=== PATIENT | female | born 1980 | race Caucasian/White ===

== ENCOUNTER 2018-03-29 00:35 | Emergency (ER) | payer SELFPAY ==
[2018-03-29 00:55] VITALS: BMI 32.8
[2018-03-29 01:10] LABS: BASO % 0.9 % (0-2.0); EOS % 0.9 % (0-4.5); HEMATOCRIT 32.1 % (32.4-45.2); HEMOGLOBIN 10.2 GM/dL (10.7-15.3); LYMPH % 36.7 % (8-40); MCH 24.2 pg (25.7-33.7); MCHC 31.6 g/dl (32.0-36.0); MEAN CELL VOLUME 76.4 fl (80-96); MEAN PLT VOLUME 7.3 fl (7.5-11.1); MONO % 6.8 % (3.8-10.2); NEUT % 54.7 % (42.8-82.8); PLATELET COUNT 396 K/MM3 (134-434); RDW 20.6 % (11.6-15.6); WHITE BLOOD COUNT 8.1 K/mm3 (4.0-10.0)
[2018-03-29] MEDS ORDERED: ASPIRIN 81 MG CHEWABLE TABLETS PO ONE (01:23)
[2018-03-29] MEDS ORDERED: FAMOTIDINE 20 MG/50 ML IVPB 20 MG in PREMIX 50 IVPB ONE (01:23)
[2018-03-29] MEDS ORDERED: MAG HYDROX/AL HYDROX/SIMETH -MYLANTA- ORAL SUSPENSION PO ONE (01:23)
[2018-03-29 01:24] LABS: URINE APPEARANCE CLEAR; URINE BILIRUBIN NEGATIVE (<2.0 mg/dL); URINE COLOR LTYELLOW; URINE GLUCOSE (UA) NEGATIVE (NEGATIVE); URINE KETONE NEGATIVE (NEGATIVE); URINE LEUK ESTERASE TRACE (NEGATIVE); URINE NITRITE NEGATIVE (NEGATIVE); URINE UROBILINOGEN NEGATIVE mg/dL (0.2-1.0)
[2018-03-29 01:25] LABS: HCG,QUALITATIVE URINE Negative
--- NOTE | 2018-03-29 01:25 | PDOC ---
History of Present Illness - General Chief Complaint: Chest Pain Stated Complaint: CHEST DISCOMFORT Time Seen by Provider: 03/29/18 00:49 History Source: Patient Exam Limitations: No Limitations - History of Present Illness Initial Comments: 03/29/18 01:24 37y F hx of thyroid ca s/ resection, presents with complaint of burning subsernal cp radiating to both shoulders. pt noted a brief episode this morning lasting approx 1 min before resolving, and then started again around 9-10pm tonight. Pt denies any prior similar episodes of the pain. pt denies any n/v, GORMAN, diaphoresis, abd pain, diarhrea, melena, bpr, dysuria, back pain. no change in pain with eating (she last had walnuts and pistatios around 8pm). denies smoking, etoh use family: mother with hx of pulmonary hypertension Past History - Past Medical History Allergies/Adverse Reactions: Allergies Allergy/AdvReac Type Severity Reaction Status Date / Time No Known Allergies Allergy Verified 03/29/18 00:52 Home Medications: Ambulatory Orders NK [No Known Home Medication] 03/29/18 - Suicide/Smoking/Psychosocial Hx Smoking History: Never smoked Have you smoked in the past 12 months: No Information on smoking cessation initiated: No Hx Alcohol Use: No Drug/Substance Use Hx: No Review of Systems - Review of Systems Able to Perform ROS?: Yes Comments:: 03/29/18 01:29 Twelve-lead EKG was performed and reviewed by me. There is normal sinus rhythm with a normal rate. rate of 73 The axis is normal. The intervals are normal. There is normal R wave progression There are no ST or T wave abnormalities. *Physical Exam - Vital Signs Last Vital Signs Temp Pulse Resp BP Pulse Ox 97.6 F 76 20 135/69 100 03/29/18 00:53 03/29/18 00:53 03/29/18 00:53 03/29/18 00:53 03/29/18 00:53 - Physical Exam Comments: 03/29/18 01:30 GENERAL: The patient is awake, alert, and fully oriented, Nontoxic - in no acute distress. HEAD: Normocephalic, atraumatic. EYES: extraocular movements intact, sclera anicteric, conjunctiva clear. ENT: Normal voice, Moist mucous membranes. NECK: Normal range of motion, supple LUNGS: Breath sounds equal, clear to auscultation bilaterally. No wheezes, no rhonchi, no rales. HEART: Regular rate and rhythm, normal S1 and S2 without murmur, rub or gallop. ABDOMEN: Soft, nontender, normoactive bowel sounds. No guarding, no rebound. . No CVA tenderness EXTREMITIES: Normal range of motion, no edema. NEUROLOGICAL: No facial assymetry, Normal speech, PSYCH: Normal mood, normal affect. SKIN: Warm, Dry, normal turgor, Heart Score/ECG Review - ECG Impressions Comment:: 03/29/18 04:23 Twelve-lead EKG was performed and reviewed by me. There is normal sinus rhythm with a normal rate. Rate of 73 The axis is normal. The intervals are normal. There is normal R wave progression There are no ST or T wave abnormalities. ED Treatment Course - LABORATORY CBC & Chemistry Diagram: 03/29/18 00:53 03/29/18 00:53 - ADDITIONAL ORDERS Additional order review: Laboratory Results 03/29/18 03/29/18 03/29/18 04:18 00:53 00:53 Sodium 141 Potassium 3.9 Chloride 104 Carbon Dioxide 32 Anion Gap 5 L BUN 14 Creatinine 0.6 Creat Clearance w eGFR > 60 Random Glucose 96 Calcium 8.5 Total Bilirubin 0.2 AST 19 ALT 14 Alkaline Phosphatase 59 Creatine Kinase 76 85 Troponin I < 0.02 < 0.02 Total Protein 7.4 Albumin 3.4 Lipase 235 Urine Color Urine Appearance Urine pH Ur Specific [place] Urine Protein Urine Glucose (UA) Urine Ketones Urine Blood Urine Nitrite Urine Bilirubin Urine Urobilinogen Ur Leukocyte Esterase Urine WBC (Auto) Urine RBC (Auto) Ur Epithelial Cells Urine Mucus Urine HCG, Qual 03/29/18 00:53 Sodium Potassium Chloride Carbon Dioxide Anion Gap BUN Creatinine Creat Clearance w eGFR Random Glucose Calcium Total Bilirubin AST ALT Alkaline Phosphatase Creatine Kinase Troponin I Total Protein Albumin Lipase Urine Color Ltyellow Urine Appearance Clear Urine pH 7.0 Ur Specific [place] 1.019 Urine Protein 1+ H Urine Glucose (UA) Negative Urine Ketones Negative Urine Blood Negative Urine Nitrite Negative Urine Bilirubin Negative Urine Urobilinogen Negative Ur Leukocyte Esterase Trace Urine WBC (Auto) 8 Urine RBC (Auto) 1 Ur Epithelial Cells Rare Urine Mucus Rare Urine HCG, Qual Negative 03/29/18 00:53 RBC 4.20 MCV 76.4 L MCHC 31.6 L RDW 20.6 H MPV 7.3 L Neutrophils % 54.7 Lymphocytes % 36.7 Monocytes % 6.8 Eosinophils % 0.9 Basophils % 0.9 - RADIOLOGY Radiology Studies Ordered: Category Date Time Status CHEST X-RAY PORTABLE* [RAD] Stat Radiology 03/29/18 01:30 Taken - Medications Given in the ED: ED Medications Discontinued Medications Generic Name Dose Route Start Last Admin Trade Name Freq PRN Reason Stop Dose Admin Al Hydroxide/Mg Hydroxide 30 ml 03/29/18 01:23 03/29/18 02:17 Mylanta Suspension - PO 03/29/18 01:24 30 ml ONCE ONE Administration Aspirin 81 mg 03/29/18 01:23 03/29/18 02:17 Asa - PO 03/29/18 01:24 81 mg ONCE ONE Administration Famotidine/Sodium Chloride 20 50 mls @ 100 mls/hr 03/29/18 01:23 03/29/18 02: 17 mg/ Miscellaneous IVPB 03/29/18 01:52 100 mls/hr ONCE ONE Administration Medical Decision Making - Medical Decision Making 03/29/18 01:30 Differential for the patient's symptoms includes pancreatitis, gastritis, consider possible ACS Will obtain EKG, blood work including CBC lipase CMP we'll treat the patient symptomatically with Pepcid, Maalox will reassess 03/29/18 04:15 labs evaluated, unremarkble pt feeling improved suspect possible gastritis will treat with zantac, maalox will have pt fu with pmd ekg unremarabkle I discussed the physical exam findings, ancillary test results and final diagnoses with the patient. I answered all of the patient's questions. The patient was satisfied with the care received and felt comfortable with the discharge plan and treatment plan. The patient will call their primary care physician within 24 hours to arrange follow-up and will return to the Emergency Department with any new, persistent or worsening symptoms. 03/29/18 05:45 trop x 2 neg will dc home pt feeling improved *DC/Admit/Observation/Transfer Diagnosis at time of Disposition: Gastritis Qualifiers: Gastritis type: unspecified gastritis Chronicity: acute Gastritis bleeding: without bleeding Qualified Code(s): K29.00 - Acute gastritis without bleeding - Discharge Dispostion Disposition: HOME Condition at time of disposition: Improved Decision to Admit order: No - Referrals - Patient Instructions Printed Discharge Instructions: DI for Gastritis, DI for Atypical Chest Pain Additional Instructions: Regrese al departamento de emergencia de inmediato con CUALQUIER sntoma nuevo, persistente o que empeora, incluidos los joycelyn abdominales recurrentes, las fiebres, los escalofros, la incapacidad para tolerar la ingesta oral o cualquier otra inquietud. Mantngase alejado del alcohol, las comidas picantes, la cafena y los alimentos cidos / amargos. [place] maalox si tiene quema para alivio. Contine usando zantac todas las noches kae milly semana. DEBE llamar y hacer un seguimiento con singh mdico y gastroenterlogo dentro de los 5 saunders para milly evaluacin ms profunda de paulo sntomas. Singh visita al departamento de emergencia no est completa sin un seguimiento con singh mdico para la reevaluacin. Los resultados fueron discutidos con usted. Asegrese de que singh mdico revise los resultados de singh evaluacin de emergencia. Return to the emergency department immediately with ANY new, persistent or worsening symptoms including any recurrent abdominal pain, fevers, chills, inability to tolerate oral intake or any other concerns. Stay away from alcohol, spicy foods, caffeine, acidic/sour foods. Take maalox if you have burning for relief. Continue using zantac every night for one week. You MUST call and follow up with your doctor and director of valuation within 5 days for further evaluation of your symptoms. Your emergency department visit is not complete without a followup with your doctor for reevaluation. Results were discussed with you. Please make sure your doctor reviews the results of your emergency evaluation. Print Language: TAJIK - Post Discharge Activity
[2018-03-29 01:26] LABS: URINE PROTEIN 1+ (NEGATIVE)
[2018-03-29 01:28] LABS: EPI CELLS RARE /HPF (FEW); URINE MUCUS RARE
[2018-03-29 02:01] LABS: ALBUMIN 3.4 g/dl (3.4-5.0); ALK PHOS 59 U/L (45-117); ANION GAP 5 MMOL/L (8-16); BILIRUBIN,TOTAL 0.2 mg/dL (0.2-1.0); BLOOD UREA NITROGEN 14 mg/dL (7-18); CALCIUM 8.5 mg/dL (8.5-10.1); CHLORIDE 104 mmol/L (98-107); CO2 32 mmol/L (21-32); CREATININE 0.6 mg/dL (0.55-1.3); GLUCOSE,RANDOM 96 mg/dL (74-106); POTASSIUM 3.9 mmol/L (3.5-5.1); SGOT/AST 19 U/L (15-37); SGPT/ALT 14 U/L (13-61); SODIUM 141 mmol/L (136-145); TOT PROT 7.4 g/dl (6.4-8.2)
[2018-03-29 02:02] LABS: LIPASE 235 U/L (73-393)
[2018-03-29] MEDS ORDERED: FAMOTIDINE 20 MG/50 ML IVPB 20 MG/50 ML MG IVPB ONE (02:16)
[2018-03-29] MEDS ORDERED: MAG HYDROX/AL HYDROX/SIMETH 30 ML UNIT-DOSE CUP ONE (02:16)
[2018-03-29] MEDS ORDERED: ASPIRIN 81 MG CHEWABLE TABLETS ONE (02:16)
[2018-03-29 02:23] LABS: ANISOCYTOSIS 2+; MACROCYTOSIS 1+
[2018-03-29 05:49] VITALS: BP 142/74; PULSE 72; TEMP 97.8
--- NOTE | 2018-03-29 21:16 | EKG ---
Test Reason : Blood Pressure : / mmHG Vent. Rate : 073 BPM Atrial Rate : 073 BPM P-R Int : 180 ms QRS Dur : 100 ms QT Int : 390 ms P-R-T Axes : 023 005 038 degrees QTc Int : 429 ms NORMAL SINUS RHYTHM MINIMAL VOLTAGE CRITERIA FOR LVH, MAY BE NORMAL VARIANT BORDERLINE ECG NO PREVIOUS ECGS AVAILABLE Confirmed by SUE GROSS MD ([id number]) on 03/29/2018 9:16:42 PM Referred By: Confirmed By:SUE GROSS MD
== END 2018-03-29 05:49 | disposition home or self-care (01) ==
LOC: JER 00:35
PROC: 3E033GC Introduction of Other Therapeutic Substance into Peripheral Vein, Percutaneous Approach (ICD-10-PCS; principal; 2018-03-29)
DX: K29.00 Acute gastritis without bleeding (principal)
CPT/HCPCS: 36415; 71045-TC-FY; 80053; 81003; 81015; 82550; 83690; 84484; 84703; 85025; 93005; 93010; 99282-25

== ENCOUNTER 2021-03-12 13:31 | Emergency (ER) | payer OTHER ==
[2021-03-12 14:27] VITALS: BP 139/83; PULSE 90; TEMP 98.1; BMI 35.4
[2021-03-12] MEDS ORDERED: ACETAMINOPHEN 500 MG TABLET (FP) PO ONE (16:25)
[2021-03-12] MEDS ORDERED: ACETAMINOPHEN 500 MG TABLET (FP) ONE (16:27)
== END 2021-03-12 17:53 | disposition home or self-care (01) ==
LOC: JER 13:31 → JERFT 13:31
DX: M79.604 Pain in right leg (principal); M79.605 Pain in left leg
CPT/HCPCS: 93970-TC; 99284-25

== ENCOUNTER 2022-06-14 17:23 | Emergency (ER) | payer OTHER ==
[2022-06-14 17:45] VITALS: BP 125/87; PULSE 96; RESP 18; TEMP 98.1; BMI 36.8
[2022-06-14] MEDS ORDERED: ACETAMINOPHEN 325 MG TABLET (FP) PO ONE (19:07)
[2022-06-14] MEDS ORDERED: ACETAMINOPHEN 325 MG TABLET (FP) ONE (19:22)
== END 2022-06-14 22:21 | disposition home or self-care (01) ==
LOC: JERFT 17:23 → JER 17:23 → JERFT 22:21
DX: R51.9 Headache, unspecified (principal)
CPT/HCPCS: 70486-TC; 99284-25